=== PATIENT | female | born 2005 | race Caucasian/White ===

== ENCOUNTER 2025-04-09 11:16 | Inpatient (IN) | payer BC, OTHER ==
[2025-04-10] MEDS ORDERED: Bupivacaine 0.25% HCL 30 ML VIAL ONE (08:00)
[2025-04-10 19:02] VITALS: BMI 31.3
[2025-04-10] MEDS ORDERED: Diphenoxylate HCl/Atropine Tablet PO PRN (19:34)
[2025-04-10] MEDS ORDERED: Lidocaine 1% (PF) 30 ML VIAL SC PRN (19:34)
[2025-04-10] MEDS ORDERED: Acetaminophen 500 MG TAB PO PRN (19:34)
[2025-04-10] MEDS ORDERED: HYDROcodone/Acetaminophen 5/325 mg Tablet PO PRN (19:34)
[2025-04-10] MEDS ORDERED: Methylergonovine 0.2 MG/ML VIAL IM PRN (19:34)
[2025-04-10] MEDS ORDERED: hydrALAZINE 20 MG/ML VIAL SLOW IVP PRN (19:34)
[2025-04-10] MEDS ORDERED: Carboprost 250 MCG/ML AMP IM PRN (19:34)
[2025-04-10] MEDS ORDERED: Ondansetron PF 4 MG/2 ML Vial IVP PRN (19:34)
[2025-04-10] MEDS ORDERED: Ibuprofen 800 MG TAB PO PRN (19:34)
[2025-04-10] MEDS ORDERED: Tranexamic Acid 1,000 MG/10 ML VIAL IVP PRN (19:34)
[2025-04-10] MEDS ORDERED: Oxytocin 30 units/NS 500 ML 500 ML IV SCH ×3 (19:45)
[2025-04-10 19:57] LABS: Hematocrit 27.6 % (34.9-44.5); Hemoglobin 8.8 g/dL (12.0-15.5); Mean Corpuscular Hemoglobin 27.0 pg (27.0-33.0); Mean Corpuscular Volume 84.7 fL (81.6-98.3); Platelet Count 334 10x3/uL (150-450); Red Blood Cell (RBC) Count 3.26 10x6/uL (3.90-5.03); White Blood Cell (WBC) Count 12.45 10x3/uL (3.5-10.5)
[2025-04-10 20:20] LABS: Hep B Surf Ag - L&D Non-Reactive S/CO (NonReactive)
[2025-04-10 20:21] LABS: Syphilis Antibody Index 0.11 S/CO (<1.00 Non-Reactive)
[2025-04-11] MEDS: fentaNYL/Ropivacaine Epidural 100 ML ONE (15:09)
[2025-04-11] MEDS ORDERED: diphenhydrAMINE 50 MG/ML VIAL IVP PRN ×2 (15:13→21:21)
[2025-04-11] MEDS ORDERED: Acetaminophen 325 MG TAB PO PRN (15:13)
[2025-04-11] MEDS ORDERED: Communication Order-Pharmacy FS SCH ×2 (15:15→21:30)
[2025-04-11] MEDS ORDERED: fentaNYL 2 mcg/Ropivacaine 0.2% Epidural 100 ML CADD EPIDURAL SCH (15:15)
[2025-04-11] MEDS: Ondansetron PF 4 MG/2 ML Vial IVP PRN (18:18)
[2025-04-11] MEDS: CEFAZOLIN 2 GM VIAL ONE (20:50)
[2025-04-11] MEDS: Azithromycin 500 MG VIAL ONE (21:10)
[2025-04-11] MEDS ORDERED: Meperidine HCl/PF 25 MG (1 mL) VIAL SLOW IVP PRN (21:20)
[2025-04-11] MEDS ORDERED: Ondansetron PF 4 MG/2 ML Vial IVP PRN ×2 (21:20→21:21)
[2025-04-11] MEDS ORDERED: Ketorolac Tromethamine 30 MG (1 mL) VIAL IVP PRN (21:21)
[2025-04-11] MEDS: Ketorolac Tromethamine 30 MG (1 mL) VIAL IVP SCH (22:16)
[2025-04-12] MEDS ORDERED: hydrALAZINE 20 MG/ML VIAL SLOW IVP PRN (00:05)
[2025-04-12] MEDS ORDERED: diphenhydrAMINE 25 MG CAP PO PRN (00:05)
[2025-04-12] MEDS ORDERED: Bisacodyl 10 MG SUPP PR PRN (00:05)
[2025-04-12] MEDS ORDERED: Boostrix 0.5 ML (Tdap) VIAL (>/=7 yrs of age) IM ONE (00:05)
[2025-04-12] MEDS ORDERED: Lanolin Ointment 7 GM TUBE TOP PRN (00:05)
[2025-04-12] MEDS ORDERED: Ondansetron PF 4 MG/2 ML Vial IVP PRN (00:05)
[2025-04-12] MEDS: Erythromycin Base 0.5% Oint 1 GM TUBE ONE (02:40)
[2025-04-12] MEDS: Hepatitis B Vaccine 10 MCG/0.5 ML SYR ONE (02:40)
[2025-04-12] MEDS: Oxytocin 10 UNITS/ML VIAL ONE (02:40)
[2025-04-12] MEDS: Ondansetron PF 4 MG/2 ML Vial ONE (02:40)
[2025-04-12] MEDS: Famotidine/PF 20 mg/2ml Vial ONE (02:40)
[2025-04-12] MEDS: PHENYLEPHRINE-NS 100 MCG/ML 10 ML SYRINGE ONE ×2 (02:41)
[2025-04-12] MEDS: Ketorolac Tromethamine 30 MG (1 mL) VIAL IVP SCH ×2 (03:53→04:14)
[2025-04-12] MEDS: Simethicone Chewable 80 MG TAB PO PRN (03:53)
[2025-04-12 05:37] LABS: Hematocrit 21.6 % (34.9-44.5); Hemoglobin 6.8 g/dL (12.0-15.5); Mean Corpuscular Hemoglobin 26.9 pg (27.0-33.0); Mean Corpuscular Volume 85.4 fL (81.6-98.3); Platelet Count 248 10x3/uL (150-450); Red Blood Cell (RBC) Count 2.53 10x6/uL (3.90-5.03); White Blood Cell (WBC) Count 19.84 10x3/uL (3.5-10.5)
[2025-04-12] MEDS: Ferrous Sulfate 325 MG TAB PO SCH (07:38)
[2025-04-12] MEDS: HYDROcodone/Acetaminophen 5/325 mg Tablet PO PRN (09:09)
[2025-04-12] MEDS ORDERED: HYDROcodone/Acetaminophen 5/325 mg Tablet PO PRN (09:30)
[2025-04-12] MEDS ORDERED: Meperidine HCl/PF 25 MG (1 mL) VIAL IM PRN (09:30)
[2025-04-13] MEDS: Ibuprofen 800 MG TAB PO SCH (05:52)
[2025-04-13 05:57] LABS: Hematocrit 25.2 % (34.9-44.5); Hemoglobin 8.0 g/dL (12.0-15.5); Mean Corpuscular Hemoglobin 27.4 pg (27.0-33.0); Mean Corpuscular Volume 86.3 fL (81.6-98.3); Platelet Count 264 10x3/uL (150-450); Red Blood Cell (RBC) Count 2.92 10x6/uL (3.90-5.03); White Blood Cell (WBC) Count 19.80 10x3/uL (3.5-10.5)
[2025-04-14 08:47] VITALS: BP 129/86; TEMP 98
== END 2025-04-14 19:30 | disposition home or self-care (01) | DRG 788 ==
LOC: CSHLD 04-10 18:01 → CSHPED 04-12 00:12
PROVIDERS: ADMIT Family Medicine; ATTEND Family Medicine
PROC: 10D00Z1 Extraction of Products of Conception, Low, Open Approach (ICD-10-PCS; principal; 2025-04-11)
DX: O65.5 Obstructed labor due to abnormality of maternal pelvic organs (principal); Z37.0 Single live birth; Z3A.40 40 weeks gestation of pregnancy; Z79.899 Other long term (current) drug therapy
CPT/HCPCS: 36415; 36430; 51702; 85027; 86780; 86850; 86870; 86900; 86901; 86922; 87340; J0456; J0595; J0665; J1308; J1885; J2405; J2590; J3010; J7120; P9016